=== PATIENT | male | born 1935 | race Two or more races ===

== ENCOUNTER 2019-12-18 22:57 | Inpatient (IN) | payer OTHER ==
[~2019-12-18] VITALS: Ht 180.3 cm; Wt 72.5 kg
[2019-12-19] LABS: Basophils # (auto) 0 10 ^3/uL (0-0.2); Basophils % (auto) 0.1 % (0.0-2.0); Eosinophils # (auto) 0 10 ^3/uL (0-0.8); Hematocrit 38.5 % (41.0-53.0); Hemoglobin 12.9 g/dL (13.5-17.5); Lymphocytes # (auto) 0.4 10 ^3/uL (0.4-5.4); Lymphocytes % (auto) 6.2 % (10.0-50.0); Mean Corpuscular Hemoglobin 34.2 pg (28.0-32.0); Mean Corpuscular Hgb Conc. 33.5 g/dL (32.0-36.0); Mean Corpuscular Volume 102.3 fL (80.0-100.0); Monocytes # (auto) 0.3 10 ^3/uL (0-1.3); Monocytes % (auto) 4.3 % (0.0-12.0); Neutrophils # (auto) 5.4 10 ^3/uL (1.6-8.6); Neutrophils % (auto) 89.4 % (37.0-80.0); Platelet Count (auto) 162 10^3/uL (140-450); Red Blood Cells 3.76 10^6/uL (4.5-5.90); Red Cell Distribution Width 13.1 % (11.8-14.3); White Blood Cell 6.1 10^3/uL (4.4-10.8)
[2019-12-19 00:17] LABS: INR 1.18 (0.9-1.15); Partial Thromboplastin Time 29.6 sec (23.64-32.05)
[2019-12-19 00:20] LABS: Alanine Aminotransferase 50 U/L (16-61); Albumin 3.8 g/dL (3.4-5.0); Anion Gap 11 (5-15); Aspartate Aminotransferase 22 U/L (15-37); BUN/Creatinine Ratio 26.7; Blood Urea Nitrogen 54 mg/dL (7-18); Calcium 9.6 mg/dL (8.5-10.1); Carbon Dioxide 27 mmol/L (21-32); Chloride 100 mmol/L (98-107); GFR African American 41 mL/min; GFR Non-African American 34 mL/min; Glucose 275 mg/dL (74-106); Magnesium 2.6 mg/dL (1.6-2.6); Sodium 138 mmol/L (136-145)
[2019-12-19 00:22] LABS: Potassium 2.8 mmol/L (3.5-5.1)
[2019-12-19 00:24] LABS: Alkaline Phosphatase 112 U/L (45-117); Bilirubin, Total 1.1 mg/dL (0.2-1.0); Total Protein 9.7 g/dL (6.4-8.2)
[2019-12-19] MEDS: POTASSIUM CHL 20MEQ/100ML 100 ML IV SCH ×2 (01:48→03:27)
[2019-12-19] MEDS ORDERED: ONDANSETRON HCL 4 MG/2 ML VIAL IV ONE ×2 (04:30→17:15)
[2019-12-19] MEDS ORDERED: MORPHINE SULF INJ 2 MG/ML SYRINGE 1ML IV PRN (05:30)
[2019-12-19] MEDS ORDERED: ONDANSETRON HCL 4 MG/2 ML VIAL IV PRN (05:30)
[2019-12-19] MEDS ORDERED: DEXTROSE (50%) 50ML SYRG IV PRN (05:30)
[2019-12-19] MEDS ORDERED: NITROGLYCERIN 0.4 MG SL TAB SL PRN (05:30)
[2019-12-19] MEDS ORDERED: POTASSIUM CHL 20MEQ/100ML 100 ML IV ONE (05:30)
[2019-12-19] MEDS ORDERED: DONE5TAB11 PO (05:58)
[2019-12-19] MEDS ORDERED: METO200T42 PO (05:58)
[2019-12-19] MEDS ORDERED: QUET25TA37 PO (05:58)
[2019-12-19] MEDS ORDERED: GLIP10TA9 PO (05:59)
[2019-12-19] MEDS ORDERED: PENT100C PO (05:59)
[2019-12-19] MEDS ORDERED: SIMV20TA90 PO (05:59)
[2019-12-19] MEDS ORDERED: PEN400T PO (05:59)
[2019-12-19] MEDS ORDERED: TRAZ50TA2 PO (05:59)
[2019-12-19] MEDS ORDERED: FURO1TAB31 PO (05:59)
[2019-12-19 06:06] LABS: Urine Bacteria MOD /hpf (None Seen); Urine Blood 2+ /uL (Negative); Urine WBC 3 /hpf (0 - 3)
[2019-12-19] MEDS: InsuLIN REG 1unit/0.01ml Soln (100units/ml) SC SCH ×4 (06:14→23:46)
[2019-12-19] MEDS: ACCU-CHEK COMFORT CURVE STRIP VI SCH ×4 (06:14→23:46)
[2019-12-19] MEDS ORDERED: SPIRONOLACTONE 25 MG TAB PO ONE (07:45)
[2019-12-19 07:54] LABS: Hematocrit 40.4 % (41.0-53.0); Hemoglobin 13.8 g/dL (13.5-17.5)
[2019-12-19 08:19] LABS: Albumin 3.5 g/dL (3.4-5.0); BUN/Creatinine Ratio 26.6; Potassium 3.3 mmol/L (3.5-5.1)
[2019-12-19 08:27] LABS: Total Protein 9.3 g/dL (6.4-8.2)
[2019-12-19] MEDS: cefTRIAXone 1GM/50ML D5W 50 ML IV SCH (09:14)
[2019-12-19] MEDS ORDERED: FUROSEMIDE 40 MG TAB PO SCH ×2 (10:00→18:00)
[2019-12-19] MEDS: PANTOPRAZOLE 40 MG/10 ML VIAL INJ IV SCH (10:59)
[2019-12-19] MEDS ORDERED: FUROSEMIDE 40 MG/4 ML VIAL IV ONE (11:15)
[2019-12-19] MEDS: SOD CHL 0.45% WITH 20MEQ KCL 1,000 ML IV SCH (11:30)
[2019-12-19] MEDS ORDERED: ACETAMINOPHEN 650 MG RECT SUPP PR PRN (11:45)
[2019-12-19] MEDS ORDERED: POTASSIUM CHLORIDE 20 MEQ, LIDOCAINE 1% (LOCAL ANESTH.) 2 ML in SODIUM CHL 0.9% 100 ML IV ONE (11:45)
[2019-12-19] MEDS ORDERED: DOPamine 1600MCG/ML D5W 250 ML IV ONE (16:37)
[2019-12-19] MEDS: DOPamine 1600MCG/ML D5W 250 ML IV SCH (17:05)
[2019-12-19] MEDS ORDERED: GLUCAGON HYDROCHLORIDE (RDNA) 1 MG VIAL IV ONE (17:15)
[2019-12-19] MEDS ORDERED: DONEPEZIL HYDROCHLORIDE 5 MG TAB PO SCH (22:00)
[2019-12-19] MEDS: ATORVASTATIN 20 MG TAB PO SCH (22:50)
[2019-12-20] MEDS: SOD CHL 0.45% WITH 20MEQ KCL 1,000 ML IV SCH (01:55)
[2019-12-20] MEDS: ACCU-CHEK COMFORT CURVE STRIP VI SCH ×4 (05:31→23:59)
[2019-12-20] MEDS: InsuLIN REG 1unit/0.01ml Soln (100units/ml) SC SCH ×3 (05:31→18:00)
[2019-12-20] MEDS: ACETAMINOPHEN 325 MG TAB PO PRN ×3 (05:45→18:31)
[2019-12-20 06:25] LABS: Basophils # (auto) 0 10 ^3/uL (0-0.2); Basophils % (auto) 0.1 % (0.0-2.0); Eosinophils # (auto) 0 10 ^3/uL (0-0.8); Hematocrit 42.9 % (41.0-53.0); Hemoglobin 14.1 g/dL (13.5-17.5); Lymphocytes # (auto) 0.9 10 ^3/uL (0.4-5.4); Mean Corpuscular Hemoglobin 34.9 pg (28.0-32.0); Mean Corpuscular Hgb Conc. 32.8 g/dL (32.0-36.0); Mean Corpuscular Volume 106.3 fL (80.0-100.0); Monocytes # (auto) 1.3 10 ^3/uL (0-1.3); Monocytes % (auto) 13.6 % (0.0-12.0); Neutrophils # (auto) 7.6 10 ^3/uL (1.6-8.6); Neutrophils % (auto) 77.3 % (37.0-80.0); Nucleated Red Blood Cells % 0.1 %; Platelet Count (auto) 156 10^3/uL (140-450); Red Blood Cells 4.04 10^6/uL (4.5-5.90); Red Cell Distribution Width 14.2 % (11.8-14.3); White Blood Cell 9.9 10^3/uL (4.4-10.8)
[2019-12-20 06:31] LABS: Albumin 3.3 g/dL (3.4-5.0); BUN/Creatinine Ratio 29.6; Calcium 9.7 mg/dL (8.5-10.1); Potassium 4.2 mmol/L (3.5-5.1)
[2019-12-20] MEDS: DOPamine 1600MCG/ML D5W 250 ML IV SCH (07:00)
[2019-12-20] MEDS ORDERED: LORazepam 0.5 MG TAB PO ONE (08:15)
[2019-12-20] MEDS: METOPROLOL SUCCINATE XL 50 MG TAB PO SCH (08:43)
[2019-12-20] MEDS ORDERED: LORazepam 2MG/ML-1ML VIAL ONE (08:53)
[2019-12-20] MEDS ORDERED: AMIODARONE 450mg/250ml AE 250 ML IV SCH (08:59)
[2019-12-20] MEDS ORDERED: AMIODARONE HCL 150 MG in D5W 5% 100 ML IV ONE (09:00)
[2019-12-20] MEDS ORDERED: LORazepam 2MG/ML-1ML VIAL IV ONE (09:00)
[2019-12-20] MEDS: cefTRIAXone 1GM/50ML D5W 50 ML IV SCH (09:09)
[2019-12-20] MEDS ORDERED: HALOPERIDOL LACTATE 5 MG/ML INJ VIAL IM ONE (09:15)
[2019-12-20] MEDS ORDERED: FUROSEMIDE 40 MG/4 ML VIAL IV ONE (09:45)
[2019-12-20] MEDS ORDERED: METOPROLOL SUCCINATE XL 50 MG TAB PO SCH (10:00)
[2019-12-20] MEDS ORDERED: FUROSEMIDE 40 MG/4 ML VIAL IV SCH (10:00)
[2019-12-20] MEDS: PANTOPRAZOLE 40 MG/10 ML VIAL INJ IV SCH (10:13)
[2019-12-20] MEDS ORDERED: NOREPINEPHRINE 8 MG/250ML KIT 250 ML IV ONE (13:07)
[2019-12-20] MEDS ORDERED: ALBUMIN 25% 100 ML IV ONE (13:30)
[2019-12-20] MEDS: NOREPINEPHRINE 8 MG/250ML KIT 250 ML IV SCH ×3 (14:30→14:45)
[2019-12-20] MEDS: AMIODARONE 450mg/250ml AE 250 ML IV SCH (14:59)
[2019-12-20] MEDS ORDERED: LIDOCAINE 1% (LOCAL ANESTH.) PF 5ml SDV ID ONE (15:00)
[2019-12-20 15:16] LABS: INR 1.46 (0.9-1.15); Partial Thromboplastin Time 34.2 sec (23.64-32.05)
[2019-12-20 15:19] LABS: BUN/Creatinine Ratio 27.9; Calcium 8.9 mg/dL (8.5-10.1); Potassium 3.2 mmol/L (3.5-5.1)
--- NOTE | 2019-12-20 15:57 | NUR ---
1533 12/20/19 - Contacted [facility] at [phone], requesting authorization for continued inpatient stay. Spoke with public health analyst Carol who provided authorization [id number] for continued inpatient stay.
[2019-12-20] MEDS: PIPERACILLIN-TAZOB 3.375GM 100 ML IV SCH (18:00)
[2019-12-20] MEDS ORDERED: HALOPERIDOL LACTATE 5 MG/ML INJ VIAL IV PRN (20:45)
[2019-12-20] MEDS: HYDROcodone-ACET 5/325MG TAB PO PRN (20:49)
[2019-12-20] MEDS ORDERED: MIRTAZAPINE 30 MG TAB PO SCH (22:00)
[2019-12-20] MEDS: SODIUM CHLOR 0.9% PF (SALINE LOCK) 10ML VIAL/SYR IV SCH (22:30)
[2019-12-20] MEDS: DONEPEZIL HYDROCHLORIDE 5 MG TAB PO SCH (22:31)
[2019-12-20] MEDS: LINEZOLID 600MG/300ML 300 ML IV SCH (22:31)
[2019-12-20] MEDS: ATORVASTATIN 20 MG TAB PO SCH (22:31)
[2019-12-20] MEDS ORDERED: TEMAZEPAM 15 MG CAP PO ONE (23:15)
[2019-12-21] MEDS: InsuLIN REG 1unit/0.01ml Soln (100units/ml) SC SCH ×4 (00:04→18:32)
[2019-12-21] MEDS: PIPERACILLIN-TAZOB 3.375GM 100 ML IV SCH ×2 (00:25→06:31)
[2019-12-21 00:47] LABS: Folate (Folic Acid) 12.37 ng/mL (5.38-24)
[2019-12-21] MEDS: ACCU-CHEK COMFORT CURVE STRIP VI SCH ×3 (06:00→18:32)
[2019-12-21] MEDS: AMIODARONE 450mg/250ml AE 250 ML IV SCH (06:16)
[2019-12-21 06:22] LABS: Potassium 3.7 mmol/L (3.5-5.1)
[2019-12-21 06:41] LABS: Albumin 3.4 g/dL (3.4-5.0); BUN/Creatinine Ratio 22.4; Bilirubin, Total 2.8 mg/dL (0.2-1.0); Calcium 8.8 mg/dL (8.5-10.1); Total Protein 8.5 g/dL (6.4-8.2)
[2019-12-21 09:34] LABS: Hemoglobin 13.5 g/dL (13.5-17.5); Red Blood Cells 3.98 10^6/uL (4.5-5.90); Red Cell Distribution Width 14.7 % (11.8-14.3); White Blood Cell 26.3 10^3/uL (4.4-10.8)
[2019-12-21 09:35] LABS: Hematocrit 42.4 % (41.0-53.0); Mean Corpuscular Hemoglobin 33.9 pg (28.0-32.0); Mean Corpuscular Hgb Conc. 31.8 g/dL (32.0-36.0); Mean Corpuscular Volume 106.5 fL (80.0-100.0); Platelet Count (auto) 75 10^3/uL (140-450)
[2019-12-21] MEDS: SODIUM CHLOR 0.9% PF (SALINE LOCK) 10ML VIAL/SYR IV SCH ×2 (09:59→22:00)
[2019-12-21] MEDS: METOPROLOL SUCCINATE XL 50 MG TAB PO SCH (10:00)
[2019-12-21] MEDS: PANTOPRAZOLE 40 MG/10 ML VIAL INJ IV SCH (10:04)
[2019-12-21] MEDS: LINEZOLID 600MG/300ML 300 ML IV SCH (10:05)
[2019-12-21 10:21] LABS: Basophils % (manual) 0 (0.0-2.0); Blast Cells 0; Eosinophils % (manual) 0 (0-7); Promyelocytes % 0; Reactive Lymphocytes 0
[2019-12-21 10:22] LABS: Band Neutrophils % (manual) 12; Lymphocytes % (manual) 1 (10.0-50.0); Metamyelocytes % 4; Monocytes % (manual) 9 (0-12); Myelocytes % 1
[2019-12-21] MEDS ORDERED: FLUCONAZOLE 200MG/100ML 100 ML IV ONE (11:30)
[2019-12-21] MEDS ORDERED: PIPERACILLIN-TAZOB 2.25GM 50 ML IV SCH (12:00)
[2019-12-21] MEDS: SODIUM CHLORIDE 0.9% 1,000 ML IV SCH (13:15)
[2019-12-21 13:23] VITALS: BP 126/79
[2019-12-21] MEDS: CLINDAMYCIN 600MG IV 50 ML IV SCH ×2 (13:58→22:00)
[2019-12-21 14:50] VITALS: BP 127/85
[2019-12-21 15:45] VITALS: BP 116/77
[2019-12-21 18:47] VITALS: BP 92/51
[2019-12-21] MEDS: MIRTAZAPINE 30 MG TAB PO SCH ×2 (20:30→22:00)
--- NOTE | 2019-12-21 21:12 | NUR ---
Respiratory note: REMOVED PT FROM BIPAP AT THIS TIME AND PLACED ON 3LNC, NO DISTRESS NOTED AT THIS TIME, PULSE OX SAT 99%
[2019-12-21] MEDS: ATORVASTATIN 20 MG TAB PO SCH (22:00)
[2019-12-21] MEDS ORDERED: LORazepam 2MG/ML-1ML VIAL IV ONE (22:00)
[2019-12-21] MEDS: MEROPENEM 500MG IVPB 50 ML IV SCH (22:00)
[2019-12-21] MEDS: DONEPEZIL HYDROCHLORIDE 5 MG TAB PO SCH (22:00)
[2019-12-21] MEDS: NOREPINEPHRINE 8 MG/250ML KIT 250 ML IV SCH (22:50)
[2019-12-22] MEDS: CLINDAMYCIN 600MG IV 50 ML IV SCH ×3 (05:38→22:11)
[2019-12-22] MEDS: InsuLIN REG 1unit/0.01ml Soln (100units/ml) SC SCH ×4 (06:00→17:55)
[2019-12-22] MEDS: ACCU-CHEK COMFORT CURVE STRIP VI SCH ×4 (06:06→17:55)
[2019-12-22] MEDS: SODIUM CHLORIDE 0.9% 1,000 ML IV SCH (07:24)
[2019-12-22 08:51] LABS: Hematocrit 35.1 % (41.0-53.0); Hemoglobin 11.5 g/dL (13.5-17.5); Red Cell Distribution Width 13.9 % (11.8-14.3)
[2019-12-22 08:53] LABS: Mean Corpuscular Hgb Conc. 32.7 g/dL (32.0-36.0); Mean Corpuscular Volume 104.1 fL (80.0-100.0); Platelet Count (auto) 52 10^3/uL (140-450); Red Blood Cells 3.38 10^6/uL (4.5-5.90); White Blood Cell 28.3 10^3/uL (4.4-10.8)
[2019-12-22 08:57] LABS: Basophils % (manual) 0 (0.0-2.0); Blast Cells 0; Eosinophils % (manual) 0 (0-7); Lymphocytes % (manual) 0 (10.0-50.0); Metamyelocytes % 0; Myelocytes % 0; Promyelocytes % 0; Reactive Lymphocytes 0
[2019-12-22 09:08] LABS: Albumin 2.5 g/dL (3.4-5.0); BUN/Creatinine Ratio 24.3; Calcium 7.8 mg/dL (8.5-10.1); Potassium 3.8 mmol/L (3.5-5.1)
[2019-12-22] MEDS: D5W/SOD CHLO 0.9% 1,000 ML IV SCH (09:09)
[2019-12-22 09:11] LABS: Bilirubin, Total 3.4 mg/dL (0.2-1.0); Total Protein 6.8 g/dL (6.4-8.2)
[2019-12-22] MEDS: FLUCONAZOLE 200MG/100ML 100 ML IV SCH (09:32)
[2019-12-22] MEDS: SODIUM CHLOR 0.9% PF (SALINE LOCK) 10ML VIAL/SYR IV SCH ×2 (09:50→22:00)
[2019-12-22] MEDS: PANTOPRAZOLE 40 MG/10 ML VIAL INJ IV SCH (09:50)
[2019-12-22] MEDS ORDERED: FLUCONAZOLE 200MG/100ML 100 ML IV SCH (10:00)
[2019-12-22] MEDS: METOPROLOL SUCCINATE XL 50 MG TAB PO SCH (10:00)
[2019-12-22] MEDS: MEROPENEM 500MG IVPB 50 ML IV SCH ×2 (10:18→22:00)
--- NOTE | 2019-12-22 10:23 | NUR ---
EEG- PT IS DISTRESSED MAKING IT IMPOSSIBLE TO RECORD ELECTROENCEPHALOGRAM WITHOUT ARTIFACTS. WILL ATTEMPT AGAIN TOMORROW ON 12/23/2019.
[2019-12-22] MEDS: ACETYLCYSTEINE 10 %(100MG/ML) SOL 4ML NEB SCH ×4 (10:27→22:22)
[2019-12-22] MEDS: IPRATROPIUM BROM 0.5 MG/2.5ML INH SOL NEB SCH ×4 (10:28→22:21)
[2019-12-22] MEDS: ALBUTEROL SULF 2.5 MG/0.5ML(0.5%) NEB SOLN NEB SCH ×4 (10:28→22:21)
[2019-12-22 10:58] LABS: Band Neutrophils % (manual) 16; Monocytes % (manual) 5 (0-12)
--- NOTE | 2019-12-22 13:53 | NUR ---
1330 12/22/19 - Faxed to [facility] at [phone] face sheet, Order for transfer to [facility] facility with critical care ambulance, H/P labs, meds. Contacted [facility] at [phone] requesting update on pending transfer, spoke with cyber forensics analyst Emmett who stated [facility] in the following areas [facility], [place], [place] are all closed due to full capacity. I inquired about [facility] facilities in other areas and was told that the [facility] policy is to try to keep patient in within 50 miles of their local.
--- NOTE | 2019-12-22 14:11 | NUR ---
SWALLOW EVALUATION IN THE EMERGENCY DEPARTMENT. PATIENT HAS NATURAL TEETH. PATIENT ALOC BUT ABLE TO TOLERATE PUREE DIET TEXTURE WITH THIN LIQUIDS WITH NO OVERT SIGNS OR SYMPTOMS OF ASPIRATION. NURSING NOTIFIED.
--- NOTE | 2019-12-22 14:40 | NUR ---
Nutrition Assessment Notes please see attached link for complete assessment [employer] needs BW 81 [id number] kcals (25-30 kcal/kgBW), Est Protein needs: 65-81 gms/day (0.8-1.0 gm/kgBW). Will continue to monitor and reassess prn. Addendum: 12/22/19 at [address] Amended: Links added.
[2019-12-22] MEDS ORDERED: AMIODARONE 450mg/250ml AE 250 ML IV ONE (15:39)
[2019-12-22] MEDS ORDERED: AMIODARONE 450mg/250ml AE 250 ML IV SCH (15:46)
[2019-12-22] MEDS ORDERED: FUROSEMIDE 100 MG/10ML VIAL IV ONE (16:45)
[2019-12-22] MEDS: AMIODARONE 450mg/250ml AE 250 ML IV SCH (21:53)
[2019-12-22] MEDS: ATORVASTATIN 20 MG TAB PO SCH (22:00)
[2019-12-22] MEDS: DONEPEZIL HYDROCHLORIDE 5 MG TAB PO SCH (22:00)
[2019-12-22] MEDS: MIRTAZAPINE 30 MG TAB PO SCH (22:00)
[2019-12-22] MEDS: methylPREDNISolone SOD SUCC 40 MG/ML VL IV SCH (23:17)
[2019-12-23] MEDS: ACCU-CHEK COMFORT CURVE STRIP VI SCH ×4 (00:29→18:00)
[2019-12-23] MEDS: InsuLIN REG 1unit/0.01ml Soln (100units/ml) SC SCH ×4 (00:35→18:00)
[2019-12-23] MEDS: ACETYLCYSTEINE 10 %(100MG/ML) SOL 4ML NEB SCH ×6 (02:09→23:20)
[2019-12-23] MEDS: IPRATROPIUM BROM 0.5 MG/2.5ML INH SOL NEB SCH ×6 (02:09→23:19)
[2019-12-23] MEDS: ALBUTEROL SULF 2.5 MG/0.5ML(0.5%) NEB SOLN NEB SCH ×6 (02:09→23:19)
[2019-12-23] MEDS: D5W/SOD CHLO 0.9% 1,000 ML IV SCH (05:55)
[2019-12-23] MEDS: CLINDAMYCIN 600MG IV 50 ML IV SCH ×3 (06:49→22:25)
[2019-12-23] MEDS: methylPREDNISolone SOD SUCC 40 MG/ML VL IV SCH ×3 (06:49→22:00)
[2019-12-23 09:09] LABS: Basophils # (auto) 0 10 ^3/uL (0-0.2); Nucleated Red Blood Cells % 0.1 %; Red Blood Cells 3.52 10^6/uL (4.5-5.90)
[2019-12-23 09:13] LABS: Basophils % (auto) 0.2 % (0.0-2.0); Eosinophils # (auto) 0.5 10 ^3/uL (0-0.8); Eosinophils % (auto) 3.2 % (0.0-7.0); Hematocrit 37.1 % (41.0-53.0); Hemoglobin 12.2 g/dL (13.5-17.5); Lymphocytes # (auto) 0.1 10 ^3/uL (0.4-5.4); Lymphocytes % (auto) 0.8 % (10.0-50.0); Mean Corpuscular Hemoglobin 34.5 pg (28.0-32.0); Mean Corpuscular Hgb Conc. 32.8 g/dL (32.0-36.0); Mean Corpuscular Volume 105.4 fL (80.0-100.0); Monocytes # (auto) 0.3 10 ^3/uL (0-1.3); Neutrophils # (auto) 15.8 10 ^3/uL (1.6-8.6); Neutrophils % (auto) 93.8 % (37.0-80.0); Platelet Count (auto) 43 10^3/uL (140-450); Red Cell Distribution Width 14.1 % (11.8-14.3); White Blood Cell 16.8 10^3/uL (4.4-10.8)
[2019-12-23 09:28] LABS: Albumin 2.7 g/dL (3.4-5.0); Calcium 8.7 mg/dL (8.5-10.1); Potassium 4.2 mmol/L (3.5-5.1)
[2019-12-23] MEDS: FLUCONAZOLE 200MG/100ML 100 ML IV SCH (09:29)
[2019-12-23 09:33] LABS: BUN/Creatinine Ratio 22.8; Bilirubin, Total 4.3 mg/dL (0.2-1.0); Total Protein 7.5 g/dL (6.4-8.2)
[2019-12-23] MEDS: SODIUM CHLOR 0.9% PF (SALINE LOCK) 10ML VIAL/SYR IV SCH ×2 (10:03→22:00)
[2019-12-23] MEDS: MEROPENEM 500MG IVPB 50 ML IV SCH ×2 (10:39→22:00)
[2019-12-23] MEDS: PANTOPRAZOLE 40 MG/10 ML VIAL INJ IV SCH (10:40)
--- NOTE | 2019-12-23 11:01 | NUR ---
EEG- ELECTROENCEPHALOGRAM COMPLETED ON 12/23/2019.
[2019-12-23] MEDS: AMIODARONE 450mg/250ml AE 250 ML IV SCH (13:08)
[2019-12-23] MEDS: LORazepam 2MG/ML-1ML VIAL IV PRN (13:31)
[2019-12-23] MEDS ORDERED: FAMO20TA10 PO (15:22)
[2019-12-23 15:23] VITALS: BP 114/66
--- NOTE | 2019-12-23 15:24 | NUR ---
PT ARRIVED TO UNIT. IN LOW FOWLERS. NON-RESPONSIVE TO VERBAL STIMULI, WITHDRAWS FROM TACTILE STIMULI. NO S/S OF DISTRESS/PAIN AT MOMENT. ON 5LNC AT 97% TOLERATING WELL. LEMON CATHETER IN PLACE, PICC 3-LUMEN TO DAMON--AMIODARONE AT 16.6ML/HR, A-FIB ON MONITOR. PERIPHERAL IV TO LFA#20. BED LOCKED AND IN LOWEST POSITION. CALL LIGHT WITHIN REACH. WILL CONTINUE TO MONITOR.
[2019-12-23] MEDS ORDERED: FUROSEMIDE 100 MG/10ML VIAL IV ONE (16:30)
[2019-12-23 20:00] VITALS: BP 148/100
--- NOTE | 2019-12-23 20:00 | NUR ---
Opening Shift Note Assumed care of patient, awake and alert. No S/S of distress/SOB or pain. Instructed on POC and to call for assist PRN, will continue to monitor for changes Q1hr and PRN. Patient resting with Cardorone gtt. Patient responsive shouting out unintelligible words. Fay Cath intact draining to gravity clear yellow urine. Bed in low position.
[2019-12-23 22:00] VITALS: BP 148/80
[2019-12-23] MEDS: MIRTAZAPINE 30 MG TAB PO SCH (22:00)
--- NOTE | 2019-12-23 22:21 | NUR ---
Dr. Daily at bedside. Patient resting comfortable no change in status.
[2019-12-23] MEDS: DONEPEZIL HYDROCHLORIDE 5 MG TAB PO SCH (22:27)
[2019-12-23] MEDS: ATORVASTATIN 20 MG TAB PO SCH (22:27)
[2019-12-24] VITALS (7 sets, daily range): BP systolic 130–155; BP diastolic 68–109
[2019-12-24] MEDS: D5W/SOD CHLO 0.9% 1,000 ML IV SCH (01:00)
[2019-12-24] MEDS: ACETYLCYSTEINE 10 %(100MG/ML) SOL 4ML NEB SCH ×6 (02:41→22:17)
[2019-12-24] MEDS: ALBUTEROL SULF 2.5 MG/0.5ML(0.5%) NEB SOLN NEB SCH ×6 (02:41→22:17)
[2019-12-24] MEDS: IPRATROPIUM BROM 0.5 MG/2.5ML INH SOL NEB SCH ×6 (02:41→22:17)
[2019-12-24] MEDS: AMIODARONE 450mg/250ml AE 250 ML IV SCH ×2 (03:46→18:34)
[2019-12-24] MEDS: InsuLIN REG 1unit/0.01ml Soln (100units/ml) SC SCH ×3 (06:00→17:54)
[2019-12-24] MEDS: CLINDAMYCIN 600MG IV 50 ML IV SCH ×3 (06:00→22:28)
[2019-12-24] MEDS: methylPREDNISolone SOD SUCC 40 MG/ML VL IV SCH ×3 (06:00→22:29)
[2019-12-24] MEDS: ACCU-CHEK COMFORT CURVE STRIP VI SCH ×4 (06:00→17:55)
--- NOTE | 2019-12-24 07:25 | NUR ---
PT IN LOW FOWLERS, AWAKENS UPON TACTILE STIMULI. UNABLE TO LET NEEDS KNOWN AT MOMENT. PT ON 8LPM OXYMIZER 95% IV INFUSING WELL TO PICC ON DAMON AMIODARONE ggt AT 16.6ml/hr. BED LOCKED AND IN LOWEST POSITION, CALL LIGHT WITHIN REACH. WILL CONTINUE TO MONITOR.
--- NOTE | 2019-12-24 08:15 | NUR ---
LEMON CATHETER CARE COMPLETED.
[2019-12-24] MEDS: PANTOPRAZOLE 40 MG/10 ML VIAL INJ IV SCH (09:38)
[2019-12-24] MEDS: FLUCONAZOLE 200MG/100ML 100 ML IV SCH (09:38)
[2019-12-24] MEDS: SODIUM CHLOR 0.9% PF (SALINE LOCK) 10ML VIAL/SYR IV SCH ×2 (09:39→22:45)
--- NOTE | 2019-12-24 10:30 | NUR ---
WOUND CARE NOTE: PATIENT NOTED TO HAVE LOW LIONEL SCORE OVERNIGHT OF 11. PATIENT ADMITTED TO [facility] WITH DIAGNOSIS OF METABOLIC ENCEPHALOPATHY, SEPSIS. PATIENT NEEDS ASSISTANCE WITH HIS TURNING/REPOSITIONING AND IS MAX ASSIST FOR HIS ADL'S. HE CONTINUES TO BE CONFUSED. PATIENT HAS SCABBED ABRASIONS TO BLE WITH CALLOUSED LEFT FOOT WOUND. LEFT OPEN TO AIR. SACRUM IS BLANCHABLE RED. PATIENT WOULD BENEFIT FROM FREQUENT TURN SCHEDULE Q 2 HOURS, PRN CONDITION PERMITS, WITH PRESSURE REDISTRIBUTION USING PILLOWS/WEDGES, BID/PRN APPLICATION WITH MOISTURE BARRIER CREAM, OPTIFOAM GENTLE SACRAL DRESSING, DIETARY CONSULT FOR LOW LIONEL, CONTINUED MONITORING BY WOUND CARE LONG HIS LIONEL SCORE REMAINS BELOW 13. WOUND CARE TEAM WILL CONTINUE TO MONITOR.
[2019-12-24] MEDS: MEROPENEM 500MG IVPB 50 ML IV SCH ×2 (11:48→22:28)
[2019-12-24 11:52] LABS: Basophils # (auto) 0 10 ^3/uL (0-0.2); Basophils % (auto) 0.1 % (0.0-2.0); Eosinophils # (auto) 0.1 10 ^3/uL (0-0.8); Eosinophils % (auto) 0.7 % (0.0-7.0); Hematocrit 38.2 % (41.0-53.0); Hemoglobin 12.6 g/dL (13.5-17.5); Lymphocytes # (auto) 0.2 10 ^3/uL (0.4-5.4); Lymphocytes % (auto) 1.9 % (10.0-50.0); Mean Corpuscular Hemoglobin 34.3 pg (28.0-32.0); Mean Corpuscular Hgb Conc. 33.1 g/dL (32.0-36.0); Mean Corpuscular Volume 103.7 fL (80.0-100.0); Monocytes # (auto) 0.4 10 ^3/uL (0-1.3); Monocytes % (auto) 4.6 % (0.0-12.0); Neutrophils # (auto) 8.7 10 ^3/uL (1.6-8.6); Neutrophils % (auto) 92.7 % (37.0-80.0); Nucleated Red Blood Cells % 0.1 %; Platelet Count (auto) 35 10^3/uL (140-450); Red Blood Cells 3.69 10^6/uL (4.5-5.90); Red Cell Distribution Width 14.4 % (11.8-14.3); White Blood Cell 9.4 10^3/uL (4.4-10.8)
[2019-12-24 12:10] LABS: Albumin 2.8 g/dL (3.4-5.0); Calcium 8.7 mg/dL (8.5-10.1); Potassium 3.7 mmol/L (3.5-5.1)
[2019-12-24 12:14] LABS: BUN/Creatinine Ratio 22.6; Bilirubin, Total 4.6 mg/dL (0.2-1.0); Total Protein 8.1 g/dL (6.4-8.2)
--- NOTE | 2019-12-24 13:30 | NUR ---
DR. BARR/ DR. MARI MADE AWARE OF BUN: 84; TURNING LATHE TENDER:3.7
[2019-12-24] MEDS ORDERED: FUROSEMIDE 100 MG/10ML VIAL IV ONE (15:45)
[2019-12-24] MEDS ORDERED: SODIUM BICARBONATE 8.4 % INJ 50ML VIAL IV ONE (15:45)
--- NOTE | 2019-12-24 19:20 | NUR ---
Opening Shift Note Assumed care of patient. Currently resting with eyes closed. Respirations even and unlabored at this time. No S/S of distress/SOB or pain. Bed locked in lowest position, HOB elevated at least 30 degrees, side rails up x 2 and call light is within reach.
--- NOTE | 2019-12-24 20:40 | NUR ---
Called/paged Dr. Landry called. Waiting for call back. Continue care.
--- NOTE | 2019-12-24 20:45 | NUR ---
returned call Dr. Landry returned call, updated on patient status and reason for call, orders received. New order received. Read back and verified. See new orders. Will carry out. Continue care.
[2019-12-24] MEDS: ATORVASTATIN 20 MG TAB PO SCH (22:29)
[2019-12-24] MEDS: DONEPEZIL HYDROCHLORIDE 5 MG TAB PO SCH (22:29)
[2019-12-24] MEDS: MIRTAZAPINE 30 MG TAB PO SCH (22:29)
[2019-12-24] MEDS: AMIODARONE HCL 200 MG TAB PO SCH (22:30)
[2019-12-25] MEDS: ACCU-CHEK COMFORT CURVE STRIP VI SCH ×5 (00:22→23:43)
[2019-12-25] MEDS: ACETYLCYSTEINE 10 %(100MG/ML) SOL 4ML NEB SCH ×6 (02:03→21:53)
[2019-12-25] MEDS: ALBUTEROL SULF 2.5 MG/0.5ML(0.5%) NEB SOLN NEB SCH ×6 (02:03→21:53)
[2019-12-25] MEDS: IPRATROPIUM BROM 0.5 MG/2.5ML INH SOL NEB SCH ×6 (02:03→21:53)
[2019-12-25 04:46] VITALS: BP 128/82
[2019-12-25] MEDS: CLINDAMYCIN 600MG IV 50 ML IV SCH ×3 (04:57→21:00)
[2019-12-25] MEDS: methylPREDNISolone SOD SUCC 40 MG/ML VL IV SCH ×2 (04:57→14:38)
[2019-12-25] MEDS: InsuLIN REG 1unit/0.01ml Soln (100units/ml) SC SCH ×5 (05:43→23:45)
[2019-12-25 05:57] LABS: Mean Corpuscular Hgb Conc. 33.3 g/dL (32.0-36.0); Platelet Count (auto) 33 10^3/uL (140-450)
[2019-12-25 05:59] LABS: Hematocrit 36.9 % (41.0-53.0); Hemoglobin 12.3 g/dL (13.5-17.5); Mean Corpuscular Hemoglobin 34.2 pg (28.0-32.0); Mean Corpuscular Volume 102.5 fL (80.0-100.0); Red Cell Distribution Width 13.9 % (11.8-14.3); White Blood Cell 7.1 10^3/uL (4.4-10.8)
[2019-12-25 06:09] LABS: Albumin 2.9 g/dL (3.4-5.0); Calcium 8.3 mg/dL (8.5-10.1); Potassium 3.6 mmol/L (3.5-5.1)
[2019-12-25 06:12] LABS: BUN/Creatinine Ratio 24.8; Bilirubin, Total 4.4 mg/dL (0.2-1.0); Total Protein 7.8 g/dL (6.4-8.2)
[2019-12-25 06:14] LABS: Basophils % (manual) 0 (0.0-2.0); Blast Cells 0; Eosinophils % (manual) 0 (0-7); Metamyelocytes % 0; Myelocytes % 0; Promyelocytes % 0; Reactive Lymphocytes 0
[2019-12-25 06:30] LABS: Band Neutrophils % (manual) 2; Lymphocytes % (manual) 3 (10.0-50.0); Monocytes % (manual) 6 (0-12)
--- NOTE | 2019-12-25 07:39 | NUR ---
END OF SHIFT NOTE ENDORSED CARE TO DAY SHIFT RN
--- NOTE | 2019-12-25 08:00 | NUR ---
RECEIVED PATIENT ALERT AND ORIENTED X1, NOT IN DISTRESS, DIMINISHED LUNG SOUNDS IN BILATERAL LOBES, RR=18 SAT=95%, DEEP BREATHING AND COUGHING WAS ENCOURAGED, NO S/S OF SOB AND CHEST PAIN AT THIS MOMENT, A FIB R= 78 ON TELE MONITOR, ABDOMEN SOFT AND ACTIVE BS IN FOUR QUADRANTS, REFUSED OF PROVIDED BREAK FAST TRAY, LAST BM=12/23/19 REPORTED, LEMON CATH IN PLACE AND PATENT, DRAINING CLEAR EDILBERTO COLORED URINE, RT. ELBOW SKIN TEAR COVERED WITH DRY AND INTACT DRESSING, SACRUM BLANCHABLE REDNESS NOTED, KEEP CLEAN AND DRY, RT. LEG CALLUS OPEN TO AIR, RADIAL AND PEDAL PULSES PALPABLE, HEAD OF BED ELEVATED, BED ON LOW POSITION, RAILS UP X2, CALL LIGHT ON REACH, WILL CONTINUE MONITORING.
[2019-12-25 09:00] VITALS: BP 139/82
[2019-12-25] MEDS: MEROPENEM 500MG IVPB 50 ML IV SCH ×2 (09:24→21:53)
[2019-12-25] MEDS: PANTOPRAZOLE 40 MG/10 ML VIAL INJ IV SCH (09:24)
[2019-12-25] MEDS: FLUCONAZOLE 200MG/100ML 100 ML IV SCH (09:24)
[2019-12-25] MEDS: LORazepam 2MG/ML-1ML VIAL IV PRN (09:25)
[2019-12-25] MEDS: SODIUM CHLOR 0.9% PF (SALINE LOCK) 10ML VIAL/SYR IV SCH ×2 (09:25→21:00)
[2019-12-25] MEDS: AMIODARONE HCL 200 MG TAB PO SCH ×2 (09:25→21:02)
--- NOTE | 2019-12-25 11:05 | NUR ---
DR. MAYERS AWARE OF ABG RESULTS.
--- NOTE | 2019-12-25 11:15 | NUR ---
1100 12/25/19 - Faxed to [facility] at [phone], face sheet, order to transfer to [facility] ambulance, H/P. labs. meds, progress notes, transfer note. Pending review and bed availability.
[2019-12-25 12:35] VITALS: BP 143/86
[2019-12-25] MEDS ORDERED: SODIUM BICARBONATE 50ML VIAL 100 ML in SOD CHL 0.45% 1,000 ML IV ONE (12:45)
--- NOTE | 2019-12-25 12:53 | NUR ---
1250 12/25/19 - Contacted [facility] at [phone], to f/u on pending transfer to [facility] facility. Spoke with information systems security analyst Carolyn who stated that [facility] facilities in [facility] are closed until further notice to due to high volume of COVID 19 in these areas. I ask if he could be consider for transfer to other [facility] facilities. Carolyn stated no due to high volume of + COVID 19 in [facility]. Carolyn did provide authorization [id number] for continued inpatient stay until 1000 AM.
[2019-12-25] MEDS: SODIUM BICARBONATE 50ML VIAL 50 ML in D5W/SOD CHL 0.45% 1,000 ML IV SCH (14:59)
--- NOTE | 2019-12-25 15:29 | NUR ---
Nutrition Followup Notes Pt wt is 70.6 kg Pt was sleeping with no relatives at bedside when rounded this morning. Pt is with a Pureed diet, appetite is poor but improved, aeb ave 25% PO intake over two meals per RN doc. Will continue to monitor PO status, skin status, pertinent labs and weight trends. Will f/u in 3-5 days. Est Energy needs BW 81 [id number] kcals (25-30 kcal/kgBW), Est Protein needs: 65-81 gms/day (0.8-1.0 gm/kgBW). Will continue to monitor and reassess prn. LABS: BUN 96 H, CREAT 3.87 H, GFR 16 L, GLU 192 H, BILI 4.4 H, AST 163 H, ALT 392 H. ALB 2.9 L GI: Pt with no BM noted today per RN doc. BS: 11 high risk. Refer to wound assessment report for full details. PES: Altered nutrition related lab values r.t current chronic medical condition aeb elev RFT hyperbil Comments 1) consider CCHO 60 gm along with current diet as pt with hx of DM 2) consider assistance with meals 3) continue current plan of care
[2019-12-25 17:00] VITALS: BP 133/94
--- NOTE | 2019-12-25 17:30 | NUR ---
PARTIAL BED BATH AND TOTAL MOOK CHANGE PROVIDED, TOLERATED WELL, DAUGHTER AMARI WAS CONTACTED ON [phone] FOR PATIENT VISIT NOTIFICATION AND INSTRUCTION, DAUGHTER CAME TO VISIT FOR 15 MINUTES INSTRUCTED.
--- NOTE | 2019-12-25 19:21 | NUR ---
NOT IN DISTRESS, RESTING ON BED, REPORT WAS GIVEN TO THE FREIGHT CALLER RN.
[2019-12-25 20:00] VITALS: BP 130/73
[2019-12-25] MEDS: ATORVASTATIN 20 MG TAB PO SCH (21:01)
[2019-12-25] MEDS: DONEPEZIL HYDROCHLORIDE 5 MG TAB PO SCH (21:01)
[2019-12-25] MEDS: ACETAMINOPHEN 325 MG TAB PO PRN (21:01)
[2019-12-25] MEDS: QUEtiapine FUMARATE 25 MG TAB PO SCH (21:02)
[2019-12-25 22:00] VITALS: BP 131/70
[2019-12-25 22:31] LABS: Creatinine, Urine 31 mg/dL (30.0-125.0); Sodium Urine 48 mmol/L (40-220)
[2019-12-25 22:37] LABS: Protein, Urine 85.1 mg/dL (0.0-11.9)
[2019-12-26] MEDS: IPRATROPIUM BROM 0.5 MG/2.5ML INH SOL NEB SCH ×6 (02:34→22:21)
[2019-12-26] MEDS: ALBUTEROL SULF 2.5 MG/0.5ML(0.5%) NEB SOLN NEB SCH ×6 (02:34→22:21)
[2019-12-26] MEDS: ACETYLCYSTEINE 10 %(100MG/ML) SOL 4ML NEB SCH ×6 (02:34→22:21)
[2019-12-26] MEDS: methylPREDNISolone SOD SUCC 40 MG/ML VL IV SCH ×2 (02:46→13:08)
[2019-12-26] MEDS: CLINDAMYCIN 600MG IV 50 ML IV SCH ×3 (05:17→21:01)
[2019-12-26] MEDS: InsuLIN REG 1unit/0.01ml Soln (100units/ml) SC SCH ×4 (05:17→23:59)
[2019-12-26] MEDS: ACCU-CHEK COMFORT CURVE STRIP VI SCH ×4 (05:18→23:54)
[2019-12-26] MEDS: SODIUM BICARBONATE 50ML VIAL 50 ML in D5W/SOD CHL 0.45% 1,000 ML IV SCH (05:18)
[2019-12-26 05:30] VITALS: BP 127/58
--- NOTE | 2019-12-26 08:00 | NUR ---
RECEIVED PATIENT LETHARGIC AND NONE VERBAL, DIMINISHED LUNG SOUNDS IN BILATERAL LUNG LOBES, RR=18 SAT=95%, DEEP BREATHING AND COUGHING WAS ENCOURAGED, NO S/S OF SOB AND CHEST PAIN AT THIS MOMENT, A FIB R= 87 ON TELE MONITOR, ABDOMEN SOFT AND ACTIVE BS IN FOUR QUADRANTS, LAST BM=12/23/19 REPORTED, LEMON CATH IN PLACE AND PATENT, DRAINING CLEAR EDILBERTO COLORED URINE, RT. ELBOW SKIN TEAR COVERED WITH DRY AND INTACT DRESSING, SACRUM COVERED WITH PROTECTIVE OPTI FOAM DRESSING, POSITION CHANGE Q HOURS, SKIN KEEP CLEAN AND DRY, RADIAL AND PEDAL PULSES PALPABLE, HEAD OF BED ELEVATED, BED ON LOW POSITION, RAILS UP X2, CALL LIGHT ON REACH, PENDING SS FOR TRANSFER PROCESS, WILL CONTINUE MONITORING.
[2019-12-26 08:51] LABS: Hematocrit 35.7 % (41.0-53.0); Hemoglobin 11.9 g/dL (13.5-17.5); Mean Corpuscular Hgb Conc. 33.3 g/dL (32.0-36.0); Mean Corpuscular Volume 102.3 fL (80.0-100.0); Platelet Count (auto) 37 10^3/uL (140-450); Red Blood Cells 3.49 10^6/uL (4.5-5.90)
[2019-12-26 09:00] VITALS: BP 122/59
[2019-12-26 09:01] LABS: Band Neutrophils % (manual) 0; Basophils % (manual) 0 (0.0-2.0); Blast Cells 0; Eosinophils % (manual) 0 (0-7); Metamyelocytes % 0; Myelocytes % 0; Promyelocytes % 0; Reactive Lymphocytes 0
[2019-12-26 09:08] LABS: Albumin 2.8 g/dL (3.4-5.0); BUN/Creatinine Ratio 24.8; Calcium 8.1 mg/dL (8.5-10.1); Potassium 3.3 mmol/L (3.5-5.1)
[2019-12-26 09:10] LABS: Bilirubin, Total 2.9 mg/dL (0.2-1.0); Total Protein 7.4 g/dL (6.4-8.2)
[2019-12-26 10:05] LABS: Lymphocytes % (manual) 2 (10.0-50.0); Monocytes % (manual) 8 (0-12)
[2019-12-26] MEDS: FLUCONAZOLE 200MG/100ML 100 ML IV SCH (10:36)
[2019-12-26] MEDS: MEROPENEM 500MG IVPB 50 ML IV SCH ×2 (10:37→22:08)
[2019-12-26] MEDS: PANTOPRAZOLE 40 MG/10 ML VIAL INJ IV SCH (10:38)
[2019-12-26] MEDS: SODIUM CHLOR 0.9% PF (SALINE LOCK) 10ML VIAL/SYR IV SCH ×2 (10:38→21:01)
[2019-12-26] MEDS: AMIODARONE HCL 200 MG TAB PO SCH ×2 (10:38→21:06)
[2019-12-26] MEDS: HYDROcodone-ACET 5/325MG TAB PO PRN (13:08)
--- NOTE | 2019-12-26 14:18 | NUR ---
1405 12/25 20 - Contacted [facility] at [phone] requesting authorization for inpatient stay, Spoke with senior security analyst Victoria, who confirmed receiving all faxed clinical for today. Victoria stated the bilingual patient support caseworker for this patient today is Tiffani. She also stated there are no beds available at [facility] facilities in [facility]. Victoria provided auth [id number] for continued inpatient stay. I also requested faxed hard copy of auth for 12/24 and 12/23.
--- NOTE | 2019-12-26 14:23 | NUR ---
assessment Patient is non verbal. I have called patients daughter Willa [phone] for my assessment. No answer and Willa's voice mail box is full. I will continue to try and get a hold of Willa. Addendum: 12/26/19 at 1424 by Kelly BANKS Amended: Links added.
--- NOTE | 2019-12-26 15:36 | NUR ---
ALERT AND ORIENTED X2, ABLE TO EAT 25% OF PROVIDED TRAY, KEEP SKIN CLEAN AND DRY, POSITION CHANGED Q TWO HOURS, TOLERATING WELL, PENDING TRANSFER TO [facility], WILL CONTINUE MONITORING.
[2019-12-26 17:00] VITALS: BP 138/74
--- NOTE | 2019-12-26 19:27 | NUR ---
NOT IN DISTRESS, RESTING ON BED, REPORT WAS GIVEN TO THE BUYER GRAIN RN.
[2019-12-26] MEDS: QUEtiapine FUMARATE 25 MG TAB PO SCH (21:06)
[2019-12-26] MEDS: ATORVASTATIN 20 MG TAB PO SCH (21:06)
[2019-12-26 22:00] VITALS: BP 150/82
[2019-12-26] MEDS: DONEPEZIL HYDROCHLORIDE 5 MG TAB PO SCH (22:05)
[2019-12-27] MEDS: methylPREDNISolone SOD SUCC 40 MG/ML VL IV SCH ×2 (01:51→14:00)
[2019-12-27] MEDS: ALBUTEROL SULF 2.5 MG/0.5ML(0.5%) NEB SOLN NEB SCH ×4 (02:17→14:27)
[2019-12-27] MEDS: IPRATROPIUM BROM 0.5 MG/2.5ML INH SOL NEB SCH ×4 (02:18→14:27)
[2019-12-27] MEDS: ACETYLCYSTEINE 10 %(100MG/ML) SOL 4ML NEB SCH ×4 (02:18→14:28)
[2019-12-27] MEDS: SODIUM BICARBONATE 50ML VIAL 50 ML in D5W/SOD CHL 0.45% 1,000 ML IV SCH (03:20)
[2019-12-27 05:00] VITALS: BP 156/101
[2019-12-27] MEDS: HYDROcodone-ACET 5/325MG TAB PO PRN (05:05)
[2019-12-27] MEDS: CLINDAMYCIN 600MG IV 50 ML IV SCH ×2 (05:50→14:00)
[2019-12-27] MEDS: ACCU-CHEK COMFORT CURVE STRIP VI SCH ×3 (05:51→18:00)
[2019-12-27] MEDS: InsuLIN REG 1unit/0.01ml Soln (100units/ml) SC SCH ×3 (05:52→18:44)
--- NOTE | 2019-12-27 07:30 | NUR ---
Opening Shift Note Assuming care of patient at this time. Patient is awake and alert to himself only. Patient denies pain. Patient shows no signs or symptoms of distress or shortness of breath. Bed is locked and lowered with side rails up x2. Instructed patient on the plan of care for today and to call for assistance as needed. Patient refuses to allow this RN to turn patient to look at bottom. Bed alarm on. Will continue to round hourly and as needed.
--- NOTE | 2019-12-27 07:30 | NUR ---
Opening Shift Note Assuming care of patient at this time. Patient is awake and alert to himself only. Patient denies pain. Patient shows no signs or symptoms of distress or shortness of breath. Bed is locked and lowered with side rails up x2. Instructed patient on the plan of care for today and to call for assistance as needed. Call light within reach. Will continue to round hourly and as needed. Bed alarm is on.
[2019-12-27 09:00] VITALS: BP 159/84
--- NOTE | 2019-12-27 09:04 | NUR ---
PATIENT IS NOT ABLE TO PARTICIPATE IN P.T. AT THIS TIME. PATIENT WILL BE DISCHARGED FROM P.T. SERVICES.
[2019-12-27] MEDS: FLUCONAZOLE 200MG/100ML 100 ML IV SCH (09:10)
[2019-12-27] MEDS: AMIODARONE HCL 200 MG TAB PO SCH (09:10)
[2019-12-27] MEDS: SODIUM CHLOR 0.9% PF (SALINE LOCK) 10ML VIAL/SYR IV SCH (09:12)
[2019-12-27] MEDS: PANTOPRAZOLE 40 MG/10 ML VIAL INJ IV SCH (09:23)
[2019-12-27 09:41] LABS: Red Blood Cells 3.69 10^6/uL (4.5-5.90)
[2019-12-27 09:43] LABS: Hematocrit 37.5 % (41.0-53.0); Hemoglobin 12.4 g/dL (13.5-17.5); Mean Corpuscular Hemoglobin 33.6 pg (28.0-32.0); Mean Corpuscular Hgb Conc. 33.1 g/dL (32.0-36.0); Mean Corpuscular Volume 101.5 fL (80.0-100.0); Platelet Count (auto) 50 10^3/uL (140-450); Red Cell Distribution Width 14.3 % (11.8-14.3); White Blood Cell 9.4 10^3/uL (4.4-10.8)
[2019-12-27 09:46] LABS: Basophils % (manual) 0 (0.0-2.0); Blast Cells 0; Eosinophils % (manual) 0 (0-7); Lymphocytes % (manual) 0 (10.0-50.0); Promyelocytes % 0; Reactive Lymphocytes 0
[2019-12-27 10:08] LABS: Albumin 3.1 g/dL (3.4-5.0); BUN/Creatinine Ratio 23.9; Calcium 8.3 mg/dL (8.5-10.1); Potassium 3.2 mmol/L (3.5-5.1)
[2019-12-27 10:16] LABS: Bilirubin, Total 3.1 mg/dL (0.2-1.0); Total Protein 8.3 g/dL (6.4-8.2)
--- NOTE | 2019-12-27 10:17 | NUR ---
1000 12/27/19 - Faxed to [facility] at [phone] face sheet, order for Hopsice placement, discharge summary, progress notes, requesting authorization for Hospice. Pending review and approval.
[2019-12-27 10:31] LABS: Band Neutrophils % (manual) 1; Metamyelocytes % 2; Monocytes % (manual) 5 (0-12); Myelocytes % 2
[2019-12-27] MEDS: MEROPENEM 500MG IVPB 50 ML IV SCH (11:30)
--- NOTE | 2019-12-27 11:48 | NUR ---
assessment Patient is a 84 year old male who is non verbal. Per patients daughter Willa prior to admission patient lived home with her and was independent. Patient has a fww for home use. Patients PCP is Dr Sarkar at the [facility].n Naima informed Willa patient has a hospice eval consult. Willa has been read a list of medicare providers. Per Willa [facility] to be contacted. Jayla from [facility] met with Willa and Willa signed all consents. Equipment will be delivered at 4pm and transport set up for 6pm with [facility]. Willa verbalized understanding and agreed to discharge plan home on [facility]. Addendum: 12/27/19 at 1753 by Kelly BANKS Amended: Links added.
--- NOTE | 2019-12-27 12:17 | NUR ---
Hospice Patient is going home on hospice today and will be picked up by [facility] at 1800. [facility] arranged by Jayla Silva, .
[2019-12-27 13:00] VITALS: BP 142/91
--- NOTE | 2019-12-27 14:59 | NUR ---
1445 12/27/19 - Contacted [facility] at [phone] requesting update on authorization for Hospice as well authorization for continued inpatient stay. Spoke with marketing analyst Abhay who provided authorization [id number] for continued inpatient stay. He also stated the case liner for this patient is Laura who was at lunch but she would call me in an hour to provide update on authorization for Hospice. Abhay did confirmed receiving all faxed documents.
[2019-12-27 17:00] VITALS: BP 161/96
[2019-12-27 17:08] VITALS: BP 161/96
--- NOTE | 2019-12-27 18:38 | NUR ---
Discharge Discharge instructions given as ordered. Encourage to follow up with PMD as instructed. All questions and concerns addressed. Medication reconciliation form completed and copy given to patient. PICC line removed with catheter intact, pressure dressing applied, leon catheter to remain in place per Dr. Javier's orders. Telemetry unit returned to ICU. [facility] by [facility] staff. No distress noted at time of departure. [facility] to begin service with patient.
== END 2019-12-27 18:45 | disposition hospice, home (50) | DRG 871 ==
LOC: EDBD 22:57 → ER 23:09 → TELE 23:10 → TELE-CENTR 12-23 15:05
PROVIDERS: ADMIT Nurse Practitioner; ATTEND Internal Medicine
PROC: 02HV33Z Insertion of Infusion Device into Superior Vena Cava, Percutaneous Approach (ICD-10-PCS; principal; 2019-12-20)
PROC: 5A09357 Assistance with Respiratory Ventilation, Less than 24 Consecutive Hours, Continuous Positive Airway Pressure (ICD-10-PCS; 2019-12-21)
DX: A41.9 Sepsis, unspecified organism (principal); G93.41 Metabolic encephalopathy; N17.0 Acute kidney failure with tubular necrosis; R65.21 Severe sepsis with septic shock; I50.31 Acute diastolic (congestive) heart failure; J96.00 Acute respiratory failure, unspecified whether with hypoxia or hypercapnia; J18.9 Pneumonia, unspecified organism; I13.0 Hypertensive heart and chronic kidney disease with heart failure and stage 1 through stage 4 chronic kidney disease, or unspecified chronic kidney disease; N39.0 Urinary tract infection, site not specified; E87.6 Hypokalemia; F03.90 Unspecified dementia, unspecified severity, without behavioral disturbance, psychotic disturbance, mood disturbance, and anxiety; N18.3 Chronic kidney disease, stage 3 (moderate); D64.9 Anemia, unspecified; I48.91 Unspecified atrial fibrillation; D75.89 Other specified diseases of blood and blood-forming organs; E11.22 Type 2 diabetes mellitus with diabetic chronic kidney disease; E86.0 Dehydration; I49.5 Sick sinus syndrome; D69.59 Other secondary thrombocytopenia; E78.5 Hyperlipidemia, unspecified; N40.0 Benign prostatic hyperplasia without lower urinary tract symptoms; T38.0X5A Adverse effect of glucocorticoids and synthetic analogues, initial encounter; Z51.5 Encounter for palliative care; Z20.828 Contact with and (suspected) exposure to other viral communicable diseases; I25.10 Atherosclerotic heart disease of native coronary artery without angina pectoris; I25.2 Old myocardial infarction; Z85.46 Personal history of malignant neoplasm of prostate; Y92.89 Other specified places as the place of occurrence of the external cause; Z79.899 Other long term (current) drug therapy; Z90.79 Acquired absence of other genital organ(s); E11.65 Type 2 diabetes mellitus with hyperglycemia
CPT/HCPCS: 36415; 36600; 70450; 71045; 71250; 72125; 74176; 76775; 80048; 80053; 81001; 82140; 82570; 82607; 82746; 82805; 82962; 83605; 83735; 83880; 84100; 84156; 84300; 84443; 84484; 85007; 85014; 85018; 85025; 85027; 85379; 85610; 85730; 87040; 87086; 92610; 93005; 93306; 94640; 94660; 95819; A4565; C9113; G0378; J0696; J1450; J1815; J2001; J2185; J2405; J2543; J3480; J3490; J7042; J7060; P9047